=== PATIENT | male | born 1965 | race Caucasian/White ===

== ENCOUNTER 2020-08-20 16:48 | Emergency (ER) | payer MEDICAID ==
[~2020-08-20] VITALS: Ht 180.3 cm; Wt 66.2 kg
--- NOTE | 2020-08-20 17:05 | NUR ---
BIB [facility] FROM [facility], C/O ABDOMINAL PAIN AFTER EATING, SEEN AT [facility] RECENTLY FOR SAME COMPLAINT, SCHED. FOR [facility]. PATIENT A/OX4, BREATHING EVEN AND UNLABORED, NO SOB NOTED. NEEDS ATTENDED.
[2020-08-20 17:18] LABS: BASOPHILS # (AUTO) 0.1 /CMM (0.0-0.2); BASOPHILS % (AUTO) 1.3 % (0.0-2.0); HEMATOCRIT 37 % (39-51); HEMOGLOBIN 12.2 g/dL (13.5-17.5); LYMPHOCYTES # (AUTO) 1.8 /CMM (0.8-4.8); LYMPHOCYTES % (AUTO) 43.8 % (20.0-44.0); MEAN CORPUSCULAR HGB CONC 34 g/dl (31.0-36.0); MEAN CORPUSCULAR VOLUME 99 fL (80-96); MONOCYTES # (AUTO) 0.3 /CMM (0.1-1.30); MONOCYTES % (AUTO) 7.6 % (2.0-12.0); NEUTROPHILS # (AUTO) 1.8 /CMM (1.8-8.9); NEUTROPHILS % (AUTO) 43.3 % (43.0-81.0); PLATELET COUNT (AUTO) 103 /CMM (150-450); RED BLOOD CELL COUNT(AUTO) 3.69 MIL/uL (4.5-6.0); WHITE BLOOD COUNT (AUTO) 4.2 K/uL (4.3-11.0)
[2020-08-20 17:26] LABS: CALCIUM, SERUM 8.6 mg/dL (8.5-10.1); CREATININE 0.8 mg/dL (0.6-1.3); POTASSIUM 3.9 mmol/L (3.5-5.1)
[2020-08-20] MEDS ORDERED: IV NS 0.9% 1,000 ML IV ONE ×2 (17:30→18:00)
[2020-08-20] MEDS ORDERED: ONDANSETRON HCL/PF - ER 4 MG/2 ML VIAL IV ONE (17:30)
[2020-08-20 17:33] LABS: ALBUMIN 2.9 g/dL (3.4-5.0); BILIRUBIN,DIRECT 0.2 mg/dL (0.0-0.2); BILIRUBIN,TOTAL 0.6 mg/dL (0.2-1.0); TOTAL PROTEIN, SERUM 6.7 g/dL (6.4-8.2)
[2020-08-20] MEDS ORDERED: ONDANSETRON HCL/PF 4 MG/2 ML VIAL ONE (17:42)
[2020-08-20] MEDS ORDERED: IV NS 0.9% 250 ML IV ONE (17:57)
[2020-08-20] MEDS ORDERED: IOHEXOL-300 100 ML VIAL IV ONE (17:57)
[2020-08-20] MEDS ORDERED: CT SWABBABLE VALVE TRANS SET 1 EA INFUS.SET MC ONE (17:57)
--- NOTE | 2020-08-20 18:00 | NUR ---
GAVE PATIENT A URINE CUP FOR A URINE SAMPLE, PET PATIENT, UNABLE TO PROVIDE URINE AT THIS TIME.
--- NOTE | 2020-08-20 18:19 | NUR ---
PERIPHERAL IV INFILTRATED, IV REMOVED AND COVERED WITH DRY DRESSING. CALLED NURSING SIDE SAWYER REQUESTED FOR A MIDLINE. PATIENT WILL NEED A MIDLINE DUE TO CT WITH CONTRAST.
[2020-08-20 18:25] LABS: ALCOHOL, BLOOD < 3 mg/dL (0-0)
--- NOTE | 2020-08-20 18:30 | NUR ---
DR. GARCIA CANCELLED 1 LITER OF NORMAL SALINE.
--- NOTE | 2020-08-20 18:36 | NUR ---
PER NURSING MACHINING ENGINEER, HEIDI 1 HOUR. Addendum: 08/20/20 at 1838 by PAULANCES ROBERT NURSE HEIDI 1 HOUR.
--- NOTE | 2020-08-20 19:32 | NUR ---
AWAITING FOR MIDLINE NURSE IN ORDER FOR PT TO BE TAKEN TO CT.
--- NOTE | 2020-08-20 20:05 | NUR ---
URINE COLLECTED AND SENT TO LAB
[2020-08-20 20:15] LABS: APPEARANCE,URINE Slightly Cloudy (CLEAR); BILIRUBIN,URINE SMALL (NEGATIVE); BLOOD, URINE Negative Ery/uL (NEGATIVE); COLOR,URINE Yellow (YELLOW); KETONES,URINE Negative (NEGATIVE); LEUKOCYTE ESTERASE ,URINE Negative (NEGATIVE); NITRITE, URINE Negative (NEGATIVE); PH,URINE 7.5 (5.0-8.0); PROTEIN,URINE Negative (NEGATIVE); UGLUCOSE Negative (NEGATIVE)
[2020-08-20 20:18] VITALS: BP 128/78
--- NOTE | 2020-08-20 20:19 | NUR ---
MIDLINE NURSE AT BEDSIDE
--- NOTE | 2020-08-20 20:42 | NUR ---
PT TRANSPORTED TO RADIOLOGY FOR CT.
[2020-08-20 20:45] LABS: BACTERIA,URINE Few /HPF (None Seen); RBC,URINE 0-2 /HPF (0-2); SQUAMOUS EPITHELIAL CELL,UR Few /HPF (None Seen); WBC,URINE 0-2 /HPF (0-3)
[2020-08-20 20:46] LABS: URINE AMORPHOUS PHOSPHATES Moderate /HPF (None Seen)
--- NOTE | 2020-08-20 22:01 | NUR ---
IV removed. Catheter intact and site benign. Pressure and 4x4 applied to site. No bleeding noted.
--- NOTE | 2020-08-20 22:07 | NUR ---
Patient does not wish to proceed with medical care recommended by Dr. GARCIA. Patient given information related to possible complications, up to and including , which could occur as a result of leaving the hospital at this time. Patient verbalizes understanding of risks involved due to leaving against medical advice. Patient did not sign the AMA form. Pt stated "I am not taking the covid 19 test, fuck that." aware.
== END 2020-08-20 22:16 | disposition left against medical advice (07) ==
LOC: ER 17:00
DX: R10.84 Generalized abdominal pain (principal); F19.10 Other psychoactive substance abuse, uncomplicated; K74.60 Unspecified cirrhosis of liver; D61.818 Other pancytopenia; R42 Dizziness and giddiness; Z59.0 Homelessness; Z98.890 Other specified postprocedural states; Z60.2 Problems related to living alone
CPT/HCPCS: 36415; 74177; 80048; 80076; 80305; 80307; 81001; 83690; 84484; 85025; 93005; 96361; 96374; 99285; J2405; J7030; J7050; Q9967; 81000-TC; G0480

== ENCOUNTER 2021-09-10 17:59 | Emergency (ER) | payer MEDICAID, OTHER ==
[~2021-09-10] VITALS: Ht 180.3 cm; Wt 61.2 kg
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
[2021-09-10 19:13] LABS: CALCIUM, SERUM 8.9 mg/dL (8.5-10.1); CARBON DIOXIDE 26 mmol/L (21-32); CHLORIDE 106 mmol/L (98-107); CREATININE 1.3 mg/dL (0.6-1.3); GLUCOSE 97 mg/dL (74-106); POTASSIUM 4.7 mmol/L (3.5-5.1); SODIUM SERUM 144 mmol/L (136-145); UREA NITROGEN, BLOOD 16 mg/dL (7-18)
[2021-09-10 19:19] LABS: ALANINE AMINOTRANSFERASE 54 U/L (12-78); ALBUMIN 3.5 g/dL (3.4-5.0); ALCOHOL, BLOOD < 3 mg/dL (0-0); ALKALINE PHOSPHATASE 107 U/L (46-116); ASPARTATE AMINOTRANSFERASE 56 U/L (15-37); BILIRUBIN,DIRECT 0.2 mg/dL (0.0-0.2); BILIRUBIN,TOTAL 0.5 mg/dL (0.2-1.0); TOTAL PROTEIN, SERUM 8.2 g/dL (6.4-8.2)
[2021-09-10 19:21] LABS: BASOPHILS % (AUTO) 0.4 % (0.0-2.0); EOSINOPHILS % (AUTO) 0.2 % (0.0-6.0); HEMATOCRIT 42 % (39-51); HEMOGLOBIN 13.6 g/dL (13.5-17.5); LYMPHOCYTES % (AUTO) 8.4 % (20.0-44.0); MEAN CORPUSCULAR HGB CONC 33 g/dl (31.0-36.0); MEAN CORPUSCULAR VOLUME 99 fL (80-96); MONOCYTES # (AUTO) 0.5 K/uL (0.1-1.30); MONOCYTES % (AUTO) 4.7 % (2.0-12.0); NEUTROPHILS # (AUTO) 9.8 K/uL (1.8-8.9); NEUTROPHILS % (AUTO) 86.3 % (43.0-81.0); PLATELET COUNT (AUTO) 155 K/uL (150-450); RED BLOOD CELL COUNT(AUTO) 4.23 MIL/uL (4.5-6.0); WHITE BLOOD COUNT (AUTO) 11.4 K/uL (4.3-11.0)
[2021-09-10 19:24] LABS: ACETAMINOPHEN < 0 ug/ml (10-30)
--- NOTE | 2021-09-10 19:37 | NUR ---
PT PLACED ON 2L O2 VIA NC FOR COMFORT. STAURATING 95%
--- NOTE | 2021-09-10 20:23 | NUR ---
AMBULATED TO THE RESTROOM, WILL TRY PROVIDE URINE SAMPLE.
--- NOTE | 2021-09-10 20:28 | NUR ---
URINE SENT TO LAB
[2021-09-10 20:46] LABS: BILIRUBIN,URINE NEGATIVE (NEGATIVE); COLOR,URINE YELLOW (YELLOW); NITRITE, URINE NEGATIVE (NEGATIVE); PROTEIN,URINE 30 mg/dl (NEGATIVE); UGLUCOSE NEGATIVE (NEGATIVE)
[2021-09-10 20:56] LABS: BACTERIA,URINE 1+ /HPF (None Seen); COARSE GRANULAR CASTS,URINE Few /LPF (None Seen); LEUKOCYTE ESTERASE ,URINE TRACE (NEGATIVE); SQUAMOUS EPITHELIAL CELL,UR Few /HPF (None Seen); WBC,URINE 21-50 /HPF (0-3)
--- NOTE | 2021-09-10 20:58 | NUR ---
PT AMBULATORY WITH STEADY GAIT. VSS.
[2021-09-10] MEDS ORDERED: NALO4SPR NS (21:34)
[2021-09-10] MEDS ORDERED: CEPH500C2 PO (21:43)
--- NOTE | 2021-09-10 21:43 | NUR ---
Patient discharged to home in stable condition. Written and verbal after care instructions given. Patient verbalizes understanding of instruction and RX. Pt ambulated out of ED. VSS.
--- NOTE | 2021-09-10 21:43 | NUR ---
IV removed. Catheter intact and site benign. Pressure and 4x4 applied to site. No bleeding noted.
[2021-09-10 21:44] VITALS: BP 108/82
== END 2021-09-10 21:59 | disposition home or self-care (01) ==
LOC: ER 18:04
DX: F11.10 Opioid abuse, uncomplicated (principal); F19.10 Other psychoactive substance abuse, uncomplicated; F15.10 Other stimulant abuse, uncomplicated; Z98.890 Other specified postprocedural states; Z60.2 Problems related to living alone; Z59.00 Homelessness unspecified
CPT/HCPCS: 36415; 80048-TC; 80076-TC; 81001; 85025-TC; 87086-TC; G0480